=== PATIENT | female | born 1960 | race Caucasian/White ===

== ENCOUNTER 2016-11-06 07:55 | Emergency (ER) | payer MEDICAID, OTHER ==
[2016-11-06] MEDS ORDERED: Sodium Chloride 0.9% 10 ML Syringe FLUSH PRN (08:07)
[2016-11-06 08:56] LABS: CHLORIDE,CL 107 mmol/L (98-107); SODIUM,NA 141 mmol/L (136-145)
[2016-11-06 09:06] VITALS: BP 131/78
[2016-11-06] MEDS ORDERED: Ketorolac 30 MG/ML SDV IVPUSH ONE (09:11)
[2016-11-06] MEDS ORDERED: methylPREDNISolone Sodium Succinate 125 MG/2 ML SDV IVPUSH ONE (09:11)
--- NOTE | 2016-11-06 09:11 | EDM.PDOC ---
ED HPI GENERAL MEDICAL PROBLEM - General Chief Complaint: General Stated Complaint: HEADACHE Time Seen by Provider: 11/06/16 08:20 Source of Information: Reports: Patient History Limitations: Reports: No Limitations - History of Present Illness INITIAL COMMENTS - FREE TEXT/NARRATIVE: Right sided headache for several days, worsening. Yesterday involved both sides of forehead/temples. Today is right sided and is located in maxillary area. Does not involve eye. No acute vision change such as double vision or auras or vision loss. No history of similar headache in past. No GI changes, such as nausea or emesis. No recent illness. No trauma. Does have history of cracked tooth right upper dental region. Has not noted any increased tooth sensitivity or swelling/drainage involving gums. Has problems with multiple cracked/repaired teeth over the years. No other complaints. OTC NSAIDS/Tylenol not helpful. Right Eye Pain Score (Numeric/FACES): 5 - Related Data Allergies Allergy/AdvReac Type Severity Reaction Status Date / Time Penicillins Allergy Cannot Verified 11/06/16 07:57 Remember Home Meds: Home Meds Acetaminophen [Tylenol Extra Strength] 500 mg PO Q6H 11/06/16 [History] Ibuprofen 200 mg PO Q6H PRN MDD PAIN 11/06/16 [History] Ketorolac [Toradol] 1 tab PO ONETIME 11/06/16 [History] Ketorolac [Toradol] 10 mg PO Q6H PRN #10 tablet 11/06/16 [Rx] traMADol [Ultram] 50 mg PO Q6H PRN #10 tablet 11/06/16 [Rx] Past Medical History Endocrine/Metabolic History: Reports: Obesity/BMI 30+ Social & Family History - Tobacco Use Smoking Status *Q: Never Smoker Second Hand Smoke Exposure: No - Alcohol Use Alcohol Use History: Yes Days Per Week of Alcohol Use: 0 (has alcohol about once a month at most) Alcohol Use in Last Twelve Months: Yes ED ROS GENERAL - Review of Systems Review Of Systems: See Below Constitutional: Denies: Fever, Chills, Malaise, Weakness, Fatigue, Night Sweats , Diaphoresis HEENT: Denies: Dental Pain, Ear Discharge, Ear Pain, Eye Discharge, Eye Pain, Nose Pain, Rhinitis, Sinus Problem, Throat Pain, Vertigo Respiratory: Reports: No Symptoms Cardiovascular: Reports: No Symptoms GI/Abdominal: Reports: No Symptoms : Reports: No Symptoms Musculoskeletal: Reports: No Symptoms Skin: Reports: No Symptoms Neurological: Reports: Headache. Denies: Confusion, Dizziness, Numbness, Paresthesia, Syncope, Tingling, Trouble Speaking, Difficulty Walking, Weakness, Change in Speech, Gait Disturbance Psychiatric: Reports: No Symptoms Hematologic/Lymphatic: Reports: No Symptoms ED EXAM, GENERAL - Physical Exam Exam: See Below Exam Limited By: No Limitations General Appearance: Alert, WD/WN, Mild Distress Eye Exam: Bilateral Eye: EOMI, PERRL Ears: Normal External Exam, Normal Canal, Hearing Grossly Normal, Normal TMs Nose: Normal Inspection Throat/Mouth: Normal Inspection, Normal Lips, Normal Teeth, Normal Gums, Normal Oropharynx, Normal Voice, No Airway Compromise, Other (No dental pain with palpation. Gums normal) Head: Atraumatic, Normocephalic. No: Facial Swelling, Facial Tenderness Neck: Normal Inspection, Supple, Non-Tender, Full Range of Motion. No: Lymphadenopathy (L), Lymphadenopathy (R) Respiratory/Chest: No Respiratory Distress, Lungs Clear, Normal Breath Sounds, No Accessory Muscle Use, Chest Non-Tender Cardiovascular: Regular Rate, Rhythm, No Murmur GI/Abdominal: Normal Bowel Sounds, Soft, Non-Tender, No Distention (Female) Exam: Deferred Rectal (Female) Exam: Deferred Back Exam: Normal Inspection Extremities: Normal Inspection, Normal Range of Motion, Non-Tender, No Pedal Edema, Normal Capillary Refill Neurological: Alert, Oriented, Normal Cognition, Normal Gait, Normal Reflexes, No Motor/Sensory Deficits Psychiatric: Normal Affect, Normal Mood Skin Exam: Warm, Dry, Intact, Normal Color Course - Vital Signs Last Recorded V/S: Last Vital Signs Temp 36.7 C 11/06/16 08:35 Pulse 57 L 11/06/16 08:35 Resp 18 11/06/16 08:35 BP 131/78 11/06/16 08:35 Pulse Ox 99 11/06/16 08:35 - Orders/Labs/Meds Orders: Active Orders 24 hr Category Date Time Status Head wo Cont [CT] Stat Exams 11/06/16 08:07 Taken Sodium Chloride 0.9% [Saline Flush] Med 11/06/16 08:07 Active 10 ml FLUSH ASDIRECTED PRN Saline Lock Insert [OM.PC] Routine Oth 11/06/16 08:07 Ordered Medication Orders Sodium Chloride (Saline Flush) 10 ml FLUSH ASDIRECTED PRN PRN Reason: Keep Vein Open Last Admin: 11/06/16 09:30 Dose: 10 ml Labs: Laboratory Tests 11/06/16 11/06/16 11/06/16 Range/Units 08:08 08:35 09:01 WBC 8.5 (4.0-10.2) K/uL RBC 4.41 (3.77-5.09) M/uL Hgb 12.7 (11.7-15.5) g/dL Hct 39.2 (34.0-46.0) % MCV 88.9 (84.0-98.0) fL MCH 28.8 (28.2-33.3) pg MCHC 32.4 (31.7-36.0) g/dL RDW 12.8 (11.2-14.1) % Plt Count 204 (150-350) K/uL Neut % (Auto) 67.1 (45.0-80.0) % Lymph % (Auto) 23.0 (10.0-50.0) % Harlan % (Auto) 8.0 (2.0-14.0) % Eos % (Auto) 1.7 (0.0-5.0) % Baso % (Auto) 0.2 (0.0-2.0) % Neut # (Auto) 5.69 (1.40-7.00) K/uL Lymph # (Auto) 1.95 (0.50-3.50) K/uL Harlan # (Auto) 0.68 (0.00-1.00) K/uL Eos # (Auto) 0.14 (0.00-0.50) K/uL Baso # (Auto) 0.02 (0.00-0.20) K/uL Sodium 141 (136-145) mmol/L Potassium 4.3 (3.5-5.1) mmol/L Chloride 107 (98-107) mmol/L Carbon Dioxide 25.4 (21.0-32.0) mmol/L BUN 21 H (7-18) mg/dL Creatinine 0.59 (0.51-1.17) mg/dL Est Cr Clr Drug Dosing TNP Estimated GFR (MDRD) > 60 mL/min Glucose 107 H (74-106) mg/dL Calcium 9.1 (8.5-10.1) mg/dL Total Bilirubin 0.3 (0.2-1.0) mg/dL AST 31 (15-37) U/L ALT 48 (12-78) U/L Alkaline Phosphatase 96 (46-116) IU/L Total Protein 7.5 (6.4-8.2) g/dL Albumin 3.9 (3.4-5.0) g/dL Specimen Type Urincc Urine Color Light yellow Urine Appearance Clear Urine pH 5.0 (5.0-9.0) Ur Specific [place] <= 1.005 (1.005-1.030) Urine Protein Negative (NEGATIVE) mg/dL Urine Glucose (UA) Negative (NEGATIVE) mg/dL Urine Ketones Negative (NEGATIVE) mg/dL Urine Occult Blood Negative (NEGATIVE) Urine Nitrite Negative (NEGATIVE) Urine Bilirubin Negative (NEGATIVE) Urine Urobilinogen 0.2 (0.2-1.0) E.U./dL Ur Leukocyte Esterase Negative (NEGATIVE) Urine RBC 0-5 /HPF Urine WBC 0-5 /HPF Ur Epithelial Cells Few /LPF Urine Bacteria Few (NONE TO FEW) /HPF Meds: Medications Generic Name Dose Route Start Last Admin Trade Name Freq PRN Reason Stop Dose Admin Sodium Chloride 10 ml 11/06/16 08:07 11/06/16 09:30 Saline Flush FLUSH 10 ml ASDIRECTED PRN Administration Keep Vein Open Discontinued Medications Generic Name Dose Route Start Last Admin Trade Name Freq PRN Reason Stop Dose Admin Ketorolac Tromethamine 30 mg 11/06/16 09:11 11/06/16 09:29 Toradol IVPUSH 11/06/16 09:12 30 mg ONETIME ONE Administration Methylprednisolone Sodium Succinate 125 mg 11/06/16 09:11 11/06/16 09:29 Solu-Medrol IVPUSH 11/06/16 09:12 125 mg ONETIME ONE Administration - Radiology Interpretation Free Text/Narrative:: Head CT negative per , Radiology, 909 - Re-Assessments/Exams Free Text/Narrative Re-Assessment/Exam: 11/06/16 09:18 Patient received Toradol and Solumedrol once CT report received. Observed. Free Text/Narrative Re-Assessment/Exam: 11/06/16 10:44 Patient much improved. Minimal discomfort from headache. Says it now feels like a "normal" headache. Would like to go home. Uncertain if this pain represents a migraine or cluster-type headache. No evidence of sinusitis or tooth abscess on CT. Given lack of specific tooth pain, seems less likely that there is a dental cause for the pain, however cannot completely rule possibility out at this time. Plan at this time is conservative. She is to observe for changes and new symptoms. Patient is to return to the ER if she has worsening problems. She should also follow up if pain does not resolve over the weekend. Further evaluation, including dental eval, may be needed. 11/06/16 10:49 Patient cautioned not to use any other NSAIDS such as ibuprofen or naprosyn if she uses Toradol. Departure - Departure Time of Disposition: 10:36 Disposition: Home, Self-Care 01 Condition: Good Clinical Impression: Headache Qualifiers: Headache type: unspecified Headache chronicity pattern: acute headache Intractability: not intractable Qualified Code(s): R51 - Headache - Discharge Information Prescriptions: Ketorolac [Toradol] 10 mg PO Q6H PRN #10 tablet PRN Reason: Pain traMADol [Ultram] 50 mg PO Q6H PRN #10 tablet PRN Reason: Pain (Severe 7-10) Instructions: Migraine Headache Referrals: PCP,Unknown [Ordering Only Provider] - Forms: ED Department Discharge Additional Instructions: Watch for changes. Follow up as needed if new symptoms develop, if symptoms worsen, or if there is no improvement over the weekend. - My Orders Last 24 Hours: My Active Orders 11/06/16 08:07 Head wo Cont [CT] Stat Sodium Chloride 0.9% [Saline Flush] 10 ml FLUSH ASDIRECTED PRN Saline Lock Insert [OM.PC] Routine - Assessment/Plan Last 24 Hours: My Active Orders 11/06/16 08:07 Head wo Cont [CT] Stat Sodium Chloride 0.9% [Saline Flush] 10 ml FLUSH ASDIRECTED PRN Saline Lock Insert [OM.PC] Routine
== END 2016-11-06 10:53 | disposition home or self-care (01) ==
LOC: LL.ED 07:55
DX: R51 Headache (principal); E66.9 Obesity, unspecified; Z68.36 Body mass index [BMI] 36.0-36.9, adult; Z88.0 Allergy status to penicillin
CPT/HCPCS: 36415; 70450; 80053; 81001; 85025; 96374; 96375; 99284; J1885; J2930; J7050